=== PATIENT | female | born 1975 | race Two or more races ===

== ENCOUNTER 2020-10-21 13:39 | Outpatient (CLI) | payer OTHER | END 2020-10-21 13:43 | disposition home or self-care (01) | LOC: LAB 13:39 | PROVIDERS: ATTEND Obstetrics & Gynecology | DX: Z20.828 Contact with and (suspected) exposure to other viral communicable diseases (principal) ==

== ENCOUNTER 2020-10-24 05:49 | Day surgery (SDC) | payer OTHER ==
[2020-10-24] MEDS ORDERED: DOXYCYCLINE HY100 MG PO (11:51)
[2020-10-24] MEDS ORDERED: NAPROXEN500 MG PO (11:52)
== END 2020-10-24 13:45 | disposition home or self-care (01) ==
LOC: CIR.AMB 05:49
PROVIDERS: ATTEND Obstetrics & Gynecology
DX: D25.0 Submucous leiomyoma of uterus (principal); N84.0 Polyp of corpus uteri; Z20.828 Contact with and (suspected) exposure to other viral communicable diseases